=== PATIENT | female | born 1965 | race Caucasian/White ===

== ENCOUNTER → 2018-07-30 | Outpatient (CLI) | payer BC ==
--- NOTE | 2018-07-31 10:01 | US ---
EXAMINATION TYPE: US thyroid st tissue head/neck DATE OF EXAM: 07/30/2018 COMPARISON: NONE CLINICAL HISTORY: E04.1 goiter. GLAND SIZE: Right Lobe: cm Overall Parenchyma: Left Lobe: cm Overall Parenchyma: Isthmus Thickness: cm NODULES RIGHT: # of nodules measured on right: 1. X x cm nodule at the pole with margins; . This nodule is and shows . Prior size: x x cm 2. X x cm nodule at the pole with margins; . This nodule is and shows . Prior size: x x cm 3. X x cm nodule at the pole with margins; . This nodule is and shows . Prior size: x x cm 4. X x cm nodule at the pole with margins; . This nodule is and shows . Prior size: x x cm LEFT: # of nodules measured on left: 1. X x cm nodule at the pole with margins; . This nodule is and shows . Prior size: x x cm 2. X x cm nodule at the pole with margins; . This nodule is and shows . Prior size: x x cm 3. X x cm nodule at the pole with margins; . This nodule is and shows . Prior size: x x cm 4. X x cm nodule at the pole with margins; . This nodule is and shows . Prior size: x x cm ISTHMUS: # of nodules measured in the isthmus: 1. X x cm nodule at the pole with margins; . This nodule is and shows . Prior size: x x cm Bilateral neck scanned, no evidence of lymphadenopathy. IMPRESSION: EXAMINATION TYPE: US thyroid st tissue head/neck DATE OF EXAM: 07/30/2018 COMPARISON: NONE CLINICAL HISTORY: E04.1 goiter. GLAND SIZE: Right Lobe: 5.3 x 2.1 x 2.1 cm Overall Parenchyma: homogenous Left Lobe: 4.9 x 1.8 x 2.1 cm Overall Parenchyma: homogeneous Isthmus Thickness: 0.2 cm NODULES RIGHT: # of nodules measured on right: 1 1. 1.5 x 0.9 x 1.2 cm isoechoic solid nodule at the lower pole with well-defined margins. This nod ule is wider than tall and shows intranodular vascularity. Prior size: 1.1 x 0.6 x 1.1 cm LEFT: # of nodules measured on left: 0 ISTHMUS: # of nodules measured in the isthmus: 0 Bilateral neck scanned, no evidence of lymphadenopathy. IMPRESSION: 1. Enlarging right lobe thyroid nodule.
== END | disposition home or self-care (01) ==
LOC: RADUSWWP 16:13
PROVIDERS: ATTEND Family Medicine
DX: E04.1 Nontoxic single thyroid nodule (principal)
CPT/HCPCS: 76536

== ENCOUNTER → 2018-08-20 | Outpatient (CLI) | payer BC ==
[2018-08-20 16:39] LABS: Parathyroid Hormone Intact 55.3 pg/mL (14.0-72.0)
[2018-08-20 16:53] LABS: Vitamin D 25 Hydroxy 19.5 ng/mL (30.0-100.0)
[2018-08-20 16:59] LABS: African American GFR (CKD) 120.6 (60.0-200.0); Albumin 4.3 g/dL (3.80-4.90); Albumin/Globulin Ratio 1.72 (1.60-3.17); Anion Gap 7.9 mmol/L (4.00-12.00); BUN/Creat Ratio 21.67 Ratio (12.00-20.00); Calcium 9.6 mg/dL (8.7-10.3); Carbon Dioxide 26.1 mmol/L (21.6-31.8); Globulin 2.5 g/dL (1.6-3.3); Potassium 4.3 mmol/L (3.5-5.5); Total Bilirubin 0.4 mg/dL (0.3-1.2); Total Protein 6.8 g/dL (6.2-8.2)
== END | disposition home or self-care (01) ==
LOC: LABWHC1 09:59
PROVIDERS: ATTEND Internal Medicine Endocrinology, Diabetes & Metabolism
DX: E83.52 Hypercalcemia (principal)
CPT/HCPCS: 36415; 80053; 82306; 83970

== ENCOUNTER → 2018-09-11 | Outpatient (CLI) | payer BC | END | disposition home or self-care (01) | LOC: RADUSWWP 08:12 | PROVIDERS: ATTEND Family Medicine | DX: R09.89 Other specified symptoms and signs involving the circulatory and respiratory systems (principal) | CPT/HCPCS: 93922 ==

== ENCOUNTER → 2018-10-02 | Outpatient (CLI) | payer BC ==
--- NOTE | 2018-10-06 17:05 | MM ---
Reason for exam: screening (asymptomatic). Last mammogram was performed 4 years and 1 month ago. History: Patient is postmenopausal. Took hormonal contraceptives for 3 years beginning at age 15. Taking unspecified hormones for 6 years beginning at age 36. MG Screening Mammo w CAD Bilateral CC and MLO view(s) were taken. Prior study comparison: August 30, 2014, bilateral MG screening mammo w CAD. June 11, 2013, [facility] DIGITAL LEFT BREAST MAMMOGRAM w/CAD. The breast tissue is heterogeneously dense. This may lower the sensitivity of mammography. No significant new finding when compared with prior studies. ASSESSMENT: Negative, BI-RAD 1 RECOMMENDATION: Routine screening mammogram of both breasts in 1 year.
== END | disposition home or self-care (01) ==
LOC: RADMAMWWP 15:06
PROVIDERS: ATTEND Family Medicine
DX: Z12.31 Encounter for screening mammogram for malignant neoplasm of breast (principal)
CPT/HCPCS: 77067

== ENCOUNTER → 2018-10-21 | Outpatient (CLI) | payer BC ==
[2018-10-21 15:19] LABS: Vitamin D 25 Hydroxy 41.8 ng/mL (30.0-100.0)
[2018-10-21 15:49] LABS: African American GFR (CKD) 96.9 (60.0-200.0); Albumin 4.1 g/dL (3.80-4.90); Albumin/Globulin Ratio 2.28 (1.60-3.17); Anion Gap 10.3 mmol/L (4.00-12.00); BUN/Creat Ratio 18.75 Ratio (12.00-20.00); Calcium 9.3 mg/dL (8.7-10.3); Carbon Dioxide 23.7 mmol/L (21.6-31.8); Globulin 1.8 g/dL (1.6-3.3); Non-African American GFR(CKD) 83.6 (60.0-200.0); Potassium 4.2 mmol/L (3.5-5.5); Total Bilirubin 0.4 mg/dL (0.2-1.2); Total Protein 5.9 g/dL (6.2-8.2)
== END | disposition home or self-care (01) ==
LOC: LABWHC1 10:45
PROVIDERS: ATTEND Internal Medicine Endocrinology, Diabetes & Metabolism
DX: E83.52 Hypercalcemia (principal)
CPT/HCPCS: 36415; 80053; 82306; 83970

== ENCOUNTER → 2019-05-18 | Outpatient (CLI) | payer BC ==
--- NOTE | 2019-05-18 16:12 | US ---
EXAMINATION TYPE: US thyroid st tissue head/neck DATE OF EXAM: 05/18/2019 COMPARISON: 07/30/2018 CLINICAL HISTORY: E04.1 Nontoxic single thyroid nodule. f/u exam GLAND SIZE: Right Lobe: 6.0 x 1.7 x 2.0 cm Overall Parenchyma: homogenous and slightly hypervascular Left Lobe: 5.4 x 1.6 x 1.8 cm Overall Parenchyma: homogeneous and slightly hypervascular Isthmus Thickness: 0.2 cm NODULES RIGHT: # of nodules measured on right: 0. The previously seen 1.5 cm right thyroid nodule appears t owards the isthmus on today's examination and is detailed below. LEFT: # of nodules measured on left: 0 ISTHMUS: # of nodules measured in the isthmus: 1 1. 1.2 X 1.3 x 0.8 cm hypoechoic solid nodule at the right side with well-defined margins. This n odule is wider than tall and shows no intranodular vascularity. Prior size: 1.5 x 0.9 x 1.2 cm Bilateral neck scanned, no evidence of lymphadenopathy. IMPRESSION: No interval growth of a solitary thyroid nodule. Overall enlarged thyroid gland with slig ht hypervascularity. Correlate for thyroiditis.
[2019-05-18 16:54] LABS: ALT 15 U/L (4-34); AST 27 U/L (14-36); African American GFR (CKD) >90 (>60 ml/min/1.73 sqM); Albumin 4.4 g/dL (3.5-5.0); Alkaline Phosphatase 74 U/L (38-126); Anion Gap 6 mmol/L; Blood Urea Nitrogen 11 mg/dL (7-17); Calcium 9.7 mg/dL (8.4-10.2); Carbon Dioxide 27 mmol/L (22-30); Chloride 104 mmol/L (98-107); Glucose 88 mg/dL (74-99); Non-African American GFR(CKD) >90 (>60 ml/min/1.73 sqM); Potassium 4.1 mmol/L (3.5-5.1); Sodium 137 mmol/L (137-145); Total Bilirubin 0.4 mg/dL (0.2-1.3); Total Protein 7.2 g/dL (6.3-8.2)
[2019-05-18 17:10] LABS: T4, Free (Free Thyroxine) 1.35 ng/dL (0.78-2.19)
== END | disposition home or self-care (01) ==
LOC: RADUSWWP 15:38
PROVIDERS: ATTEND Internal Medicine Endocrinology, Diabetes & Metabolism
DX: E04.9 Nontoxic goiter, unspecified (principal); E04.1 Nontoxic single thyroid nodule; E55.9 Vitamin D deficiency, unspecified
CPT/HCPCS: 36415; 76536; 80053; 82306; 84439; 84443

== ENCOUNTER → 2019-09-03 | Outpatient (CLI) | payer BC ==
--- NOTE | 2019-09-03 10:55 | MR ---
EXAMINATION TYPE: MR shoulder RT wo con DATE OF EXAM: 09/03/2019 COMPARISON: X-ray 08/09/2019 HISTORY: Rt shoulder pain x 7 mos, no trauma TECHNIQUE: Multiplanar, multisequence imaging of the right shoulder is performed without contrast. FINDINGS: There is a small amount of fluid in the subacromial bursa. Hypertrophic change of the AC sandro int is noted. There likely is mild mass effect upon the supraspinatus tendon and muscle and resulting impingement. There is very minimal bursal scuffing along the insertion and distal margin of the infraspinatus tend on. Increased signal at the insertion of the infraspinatus tendon is most compatible with tendinosis with no diagnostic evidence of through thickness tear. There is thickening of the inferior glenohumeral ligament associated with ligamentous injury or synov itis. Bicipital tendon is well situated in the bicipital groove. Increased signal intrasubstance biceps ten don within the rotator interval. Bony labrum are grossly intact by nonarthrogram technique. Suprascapular notch normal in appearance. IMPRESSION : 1. Marked thickening of the inferior glenohumeral ligament which can be associated with ligamentous t ear or injury, synovitis or capsulitis. Correlate clinically. 2. Bursal scuffing along the insertion and distal margin of the infraspinatus tendon. No through thic kness tear. 3. Bicipital tendinosis. 4. Tendinosis insertion supraspinatus tendon with no through thickness tear or retraction.
== END | disposition home or self-care (01) ==
LOC: RADMRIMAIN 08:54
PROVIDERS: ATTEND Orthopaedic Surgery
DX: M65.9 Synovitis and tenosynovitis, unspecified (principal)

== ENCOUNTER → 2019-09-21 | Outpatient (CLI) | payer BC ==
[2019-09-21 08:02] LABS: Basophils # (A) 0.1 k/uL (0-0.2); Basophils % (A) 1 %; Eosinophils # (A) 0.1 k/uL (0-0.7); Eosinophils % (A) 2 %; HCT 51.1 % (34.0-46.0); HGB 16.5 gm/dL (11.4-16.0); Lymphocytes # (A) 1.9 k/uL (1.0-4.8); Lymphocytes % (A) 27 %; MCH 30.7 pg (25.0-35.0); MCHC 32.2 g/dL (31.0-37.0); MCV 95.3 fL (80.0-100.0); Monocytes # (A) 0.3 k/uL (0-1.0); Monocytes % (A) 5 %; Neutrophils # (A) 4.4 k/uL (1.3-7.7); Neutrophils % (A) 64 %; Platelet Count 248 k/uL (150-450); RBC 5.36 m/uL (3.80-5.40); RDW 13.2 % (11.5-15.5); WBC 6.9 k/uL (3.8-10.6)
[2019-09-21 08:09] LABS: Potassium 4.2 mmol/L (3.5-5.1)
--- NOTE | 2019-09-21 08:53 | XR ---
EXAMINATION TYPE: XR chest 2V DATE OF EXAM: 09/21/2019 COMPARISON: None INDICATION: Adhesive capsulitis, presurgical evaluation TECHNIQUE: Frontal and lateral views of the chest are obtained. FINDINGS: The heart size is normal. The pulmonary vasculature is normal. The lungs are clear. IMPRESSION: 1. No acute pulmonary process.
== END | disposition home or self-care (01) ==
LOC: RADXRMAIN 06:55
PROVIDERS: ATTEND Orthopaedic Surgery
DX: Z01.818 Encounter for other preprocedural examination (principal); Z01.812 Encounter for preprocedural laboratory examination; Z01.810 Encounter for preprocedural cardiovascular examination; M75.01 Adhesive capsulitis of right shoulder
CPT/HCPCS: 36415; 71046; 80051; 85025; 93005

== ENCOUNTER 2019-09-24 05:31 | Day surgery (SDC) | payer BC ==
[2019-09-21 10:49] VITALS: BMI 22.1
--- NOTE | 2019-09-23 10:27 | HP ---
HISTORY AND PHYSICAL CHIEF COMPLAINT: Right shoulder pain and stiffness. 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 She is having pain that radiates into her upper arm with overhead use and at night. It seems to be worsening recently. She has previously tried medications along with a home stretching regimen without much relief. PAST MEDICAL HISTORY: Significant for hyperthyroidism. CURRENT MEDICATIONS: None. PAST SURGICAL HISTORY: Significant for tubal ligation and cholecystectomy. FAMILY HISTORY: Family history is negative. SOCIAL HISTORY: Significant for 1/3 pack per day tobacco use. REVIEW OF SYSTEMS: Sixteen point review of systems otherwise reviewed and is noncontributory. PHYSICAL EXAMINATION: On examination, the patient is approximately 5 foot, 6 inches, 136 pounds, of mesomorphic habitus. HEENT exam is nonfocal. Neck is supple. On examination of her right shoulder, she is tender about the anterior subacromial space. She has moderate subacromial crepitus. Active range of motion forward elevation 90 degrees, external rotation of the arm to side 30 degrees, internal rotation to the buttock. Passively I am able to forward elevate her to 100 degrees. Impingement test, NEER test and Speed tests are positive. Her distal neurovascular exam otherwise appears intact in the right upper extremity. IMAGING: MRI report right shoulder from 09/03/2019 shows rotator cuff tendinosis along with synovitis. IMPRESSION: 1. Right shoulder adhesive capsulitis. 2. Right shoulder impingement with rotator cuff tendinosis/synovitis. RECOMMENDATIONS: I talked to the patient at length regarding her condition, along with treatment options. After thorough discussion, she opts to proceed with surgery. We will plan to proceed with right shoulder arthroscopic evaluation with probable subacromial decompression and rotator cuff debridement along with manipulation. We will likely perform that as an outpatient procedure. Risks and benefits were discussed at length in layman's terms. MMODL / IJN: [id number] /
[2019-09-24] MEDS ORDERED: DEXAMETHASONE SOD PHOSPHATE 10 MG/ML 1 ML VIAL IV ONE (05:41)
[2019-09-24] MEDS ORDERED: ONDANSETRON 4 MG/2 ML VIAL IVP ONE (05:41)
[2019-09-24] MEDS ORDERED: KETOROLAC 30 MG/ML 1 ML VIAL IVP SCH (05:41)
[2019-09-24] MEDS ORDERED: METOCLOPRAMIDE 5 MG/ML 2 ML VIAL IVP PRN (05:41)
[2019-09-24] MEDS ORDERED: HYDROmorphone 0.5 MG/0.5 ML SYRINGE IVP PRN (05:41)
[2019-09-24] MEDS ORDERED: LIDOCAINE 1% (10MG/ML) FOR IV START INTRADERMA PRN (05:41)
[2019-09-24 05:55] VITALS: RESP 16
[2019-09-24] MEDS: LACTATED RINGERS 1,000 ML IV SCH ×2 (06:00→06:56)
[2019-09-24] MEDS ORDERED: ONDANSETRON 4 MG/2 ML VIAL ONE (06:05)
[2019-09-24] MEDS ORDERED: fentaNYL (PF) 50 MCG/ML 2 ML AMP IVP ONE (06:43)
[2019-09-24] MEDS ORDERED: MIDAZOLAM 2 MG/2 ML VIAL IVP ONE ×2 (06:43)
[2019-09-24] MEDS ORDERED: ROPIVACAINE 5 MG/ML 30 ML VIAL ONE (06:56)
[2019-09-24] MEDS ORDERED: PROPOFOL 10 MG/ML 20 ML VIAL IV ONE (06:56)
[2019-09-24] MEDS ORDERED: fentaNYL (PF) 50 MCG/ML 2 ML AMP ONE (06:56)
[2019-09-24] MEDS ORDERED: LIDOCAINE 1% INJ 10MG/ML (20 ML MDV) ONE (06:56)
[2019-09-24] MEDS ORDERED: ePHEDrine SULFATE/0.9% NACL/PF 50 MG/5 ML SYRINGE IV ONE (06:56)
[2019-09-24] MEDS ORDERED: SUCCINYLCHOLINE CHLORIDE 100 MG/5 ML SYR IV ONE (06:56)
--- NOTE | 2019-09-24 07:19 | P.ANPRN ---
Procedure Note - Anesthesia - Nerve Block Performed Right Interscalene Single Time Out Performed: Yes Date of Procedure: 09/24/19 Procedure Start Time: 06:40 Procedure Stop Time: 06:48 Location of Patient: PreOp Indication: Requested by Surgeon Specifically requested for management of pain by DrDaxa: Arik Parker Sedation Type: Sedate with meaningful contact maintained Preparation: Sterile Prep Position: Supine Catheter: None Needle Types: Pajunk Needle Gauge: 21 Ultrasound used to visualize needle placement: Yes Ultrasound used to observe medication spread: Yes Injectate: 0.5% Ropivacaine (see comment for volume) (20 ml) Blood Aspirated: No Pain Paresthesia on Injection Noted: No Resistance on Injection: Normal Image Stored and Saved: Yes Events: Uneventful and Well Tolerated
[2019-09-24] MEDS ORDERED: EPINEPHrine (PF) 1 ML in SODIUM CHLORIDE 0.9% IRRIGATIO 3,000 ML IRRIGATION ONE ×7 (07:38→07:40)
--- NOTE | 2019-09-24 08:07 | P.OP ---
Date of Procedure: 09/24/19 Preoperative Diagnosis: Right shoulder impingement/adhesive capsulitis Postoperative Diagnosis: Same in addition to partial thickness bursal surface tear rotator cuff/synovitis Procedure(s) Performed: Right shoulder arthroscopic subacromial decompression/partial synovectomy/rotator cuff debridement/manipulation under anesthesia Anesthesia: miguel FERNÁNDEZ Surgeon: Arik Parker Med Spa Manager #1: Gordon Bustillo Estimated Blood Loss (ml): 10 Pathology: none sent Condition: stable Disposition: PACU Indications for Procedure: Patient is a 54-year-old female who presents with progressive right shoulder pain and stiffness for the past 6 months despite conservative measures. A discussion the risks and benefits of operative intervention versus continued conservative measures was made with patient. She opted to proceed with surgery. Operative risks to include infection, neurovascular injury, development of blood clots, possible recurrence of stiffness and need process Procedures was discussed. Informed consent was obtained. Operative Findings: As below Description of Procedure: The patient was brought to the operating room, and after induction of general anesthesia was placed in a beachchair position. A preoperative interscalene block was placed for postoperative analgesia. I examined the right shoulder. There was significant block to passive motion. Gentle manipulation was performed first with the arm at the side obtaining full external rotation. Moderate adhesions were encountered. I then was able to obtain full forward elevation. Again there were moderate adhesions encountered. The right upper extremity was prepped and draped in normal fashion. The bony outlines the acromion, distal clavicle, and coracoid process were outlined with a skin marker. The glenohumeral joint was inflated with 50 mL of saline utilizing a spinal needle from posterior approach. A posterior portal was made through a 5 mm skin incision 1 cm medial and inferior to the posterior lateral border time. A blunt trocar was used to easily into the joint. Diagnostic arthroscopy was performed. An anterior portal was made just lateral to the coracoid process entering the joint above the subscapularis tendon. The subscapularis tendon appeared to be intact. There was significant synovitis of the rotator interval. This was debrided with a motorized shaver. Anterior labrum was intact. The inferior recess was inspected. The posterior labrum was intact. The biceps and anchor appeared to be intact. The rotator cuff was intact on the articular surface. Remaining synovitis was debrided with a motorized shaver. A lateral portal was made 2 centimeters inferior to the anterior lateral border of the acromion. The rotator cuff was inspected. A partial thickness tear involving the anterior aspect of the supraspinatus. This debrided with motorized shaver. Less than 10% of the tendon thickness was involved. Remaining rotator cuff appeared intact. There was significant subacromial bursitis that was debrided with a motorized shaver. The soft tissue on the undersurface of the acromion was debrided with a motorized shaver and electrocautery clearly defining the anterior medial and lateral borders as well as the distal clavicle. An anterior inferior acromioplasty was performed with a motorized tacos starting anterolateral, then extending this posteriorly, then extending this medially. I converted to a flat acromion and this was verified in the posterior and lateral viewing portals. The arthroscope was then removed. The portals were closed with simple 3-0 nylon sutures. A sterile dressing was applied in addition to a sling. The patient was then awoken from general anesthesia and transferred to recovery room in good condition. Blood loss was estimated at 10 mL. No complications were incurred. Sponge and needle counts were correct in the case. Isma FRANCO assisted and the major components of the case to include arm positioning along with decompression.
[2019-09-24 08:09] VITALS: TEMP 96.9
[2019-09-24 09:10] VITALS: BP 121/78; PULSE 82
== END 2019-09-24 09:33 | disposition home or self-care (01) ==
LOC: OR 05:31
PROVIDERS: ATTEND Orthopaedic Surgery
DX: M75.111 Incomplete rotator cuff tear or rupture of right shoulder, not specified as traumatic (principal); M75.01 Adhesive capsulitis of right shoulder; M75.51 Bursitis of right shoulder; M65.811 Other synovitis and tenosynovitis, right shoulder; E05.90 Thyrotoxicosis, unspecified without thyrotoxic crisis or storm; Z98.51 Tubal ligation status; Z90.49 Acquired absence of other specified parts of digestive tract; F17.210 Nicotine dependence, cigarettes, uncomplicated; Z97.2 Presence of dental prosthetic device (complete) (partial)
CPT/HCPCS: 64415; 76942; 29823; J2250; J1100; J2405; J0690; J0171; J2001; J3010; J2795; J0330; J2704

== ENCOUNTER → 2019-12-07 | Outpatient (CLI) | payer BC ==
[2019-12-07 17:25] LABS: T4, Free (Free Thyroxine) 1.3 ng/dL (0.80-1.80)
== END | disposition home or self-care (01) ==
LOC: LABWHC1 08:26
PROVIDERS: ATTEND Internal Medicine Endocrinology, Diabetes & Metabolism
DX: E04.1 Nontoxic single thyroid nodule (principal); E55.9 Vitamin D deficiency, unspecified
CPT/HCPCS: 36415; 82306; 84439; 84443

== ENCOUNTER 2020-07-30 02:49 | Emergency (ER) | payer BC ==
[2020-07-30 02:53] VITALS: TEMP 97.6
[2020-07-30] MEDS ORDERED: SODIUM CHLORIDE 0.9% 1,000 ML IV STA ×2 (03:11)
--- NOTE | 2020-07-30 03:14 | ED ---
Chest Pain HPI - General Chief Complaint: Chest Pain Stated Complaint: Chest pain Time Seen by Provider: 07/30/20 02:59 Source: patient Mode of arrival: wheelchair Limitations: no limitations - Related Data Home Medications Medication Instructions Recorded Confirmed Multivitamins, Thera [Multivitamin] 1 tab PO DAILY 08/22/15 09/24/19 Elderberry Fruit and Flower [Black 1 each PO DAILY 09/21/19 09/24/19 Elderberry 575 mg Cap] Previous Rx's Medication Instructions Recorded Hydrocodone/Acetaminophen [[place] 1 each PO Q6HR PRN #28 tab 09/24/19 5-325] Allergies Allergy/AdvReac Type Severity Reaction Status Date / Time No Known Allergies Allergy Verified 07/30/20 02:53 Review of Systems ROS Statement: Those systems with pertinent positive or pertinent negative responses have been documented in the HPI. ROS Other: All systems not noted in ROS Statement are negative. Past Medical History Past Medical History: Thyroid Disorder History of Any Multi-Drug Resistant Organisms: None Reported Past Surgical History: Cholecystectomy, Orthopedic Surgery, Tubal Ligation Additional Past Surgical History / Comment(s): cyst removed left wrist Past Anesthesia/Blood Transfusion Reactions: No Reported Reaction Past Psychological History: No Psychological Hx Reported Smoking Status: Current every day smoker Past Alcohol Use History: Occasional Past Drug Use History: Marijuana - Past Family History Mother Family Medical History: Deep Vein Thrombosis (DVT) General Exam Limitations: no limitations Course Vital Signs 07/30/20 07/30/20 07/30/20 02:51 03:10 04:28 Temperature 97.6 F Pulse Rate 77 68 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
[2020-07-30 03:31] LABS: Basophils % (A) 0 %; Eosinophils # (A) 0.2 k/uL (0-0.7); Eosinophils % (A) 1 %; HGB 16.3 gm/dL (11.4-16.0); Lymphocytes # (A) 1.6 k/uL (1.0-4.8); Lymphocytes % (A) 12 %; MCH 32.5 pg (25.0-35.0); MCHC 34.6 g/dL (31.0-37.0); MCV 93.8 fL (80.0-100.0); Mean Platelet Volume 7.9; Monocytes # (A) 0.5 k/uL (0-1.0); Monocytes % (A) 4 %; Neutrophils # (A) 10.7 k/uL (1.3-7.7); Neutrophils % (A) 82 %; Platelet Count 240 k/uL (150-450); RBC 5.01 m/uL (3.80-5.40); RDW 12.6 % (11.5-15.5); WBC 13.1 k/uL (3.8-10.6)
[2020-07-30] MEDS ORDERED: MORPHINE SULFATE 4 MG/ML SYRINGE IVP STA (03:35)
[2020-07-30 03:44] LABS: ALT 12 U/L (4-34); AST 29 U/L (14-36); African American GFR (CKD) >90 (>60 ml/min/1.73 sqM); Albumin 4.4 g/dL (3.5-5.0); Alkaline Phosphatase 77 U/L (38-126); Anion Gap 8 mmol/L; Blood Urea Nitrogen 8 mg/dL (7-17); Calcium 10.7 mg/dL (8.4-10.2); Carbon Dioxide 31 mmol/L (22-30); Chloride 100 mmol/L (98-107); Glucose 114 mg/dL (74-99); Lipase 136 U/L (23-300); Magnesium 1.6 mg/dL (1.6-2.3); Non-African American GFR(CKD) >90 (>60 ml/min/1.73 sqM); Potassium 3.9 mmol/L (3.5-5.1); Sodium 139 mmol/L (137-145); Total Bilirubin 0.6 mg/dL (0.2-1.3); Total Protein 6.9 g/dL (6.3-8.2)
[2020-07-30 03:51] LABS: D-Dimer 0.32 mg/L FEU (<0.60); Prothrombin Time 10.4 sec (9.0-12.0)
[2020-07-30 03:54] LABS: Partial Thromboplastin Time 20.3 sec (22.0-30.0)
[2020-07-30] MEDS ORDERED: HYDROmorphone 1 MG/ML 1 ML SYRINGE IVP STA (04:08)
[2020-07-30 04:29] VITALS: BP 141/84; PULSE 68; RESP 18
--- NOTE | 2020-07-30 04:33 | CT ---
EXAM: CT Angiography Chest With Intravenous Contrast CLINICAL HISTORY: ITS.REASON CT Reason: cp TECHNIQUE: Axial computed tomographic angiography images of the chest with intravenous contrast. CTDI is 8.97 mGy and DLP is 209.2 mGy-cm. This CT exam was performed using one or more of the following dose reduction techniques: automated exposure control, adjustment of the mA and/or kV according to patient size, and/or use of iterative reconstruction technique. MIP reconstructed images were created and reviewed. COMPARISON: No relevant prior studies available. FINDINGS: Limitations: There is respiratory artifact which degrades image quality on multiple image slices. Pulmonary arteries: No evidence for pulmonary embolism. Aorta: No acute findings. No thoracic aortic aneurysm. Lungs: Subsegmental dependent atelectatic changes in the posterior lung bases. Subtle centrilobular bullous disease in the upper lobes, right greater than left. Minimal areas of ground-glass attenuation. No focal consolidation however. 3 mm noncalcified pulmonary nodule in the inferior left lingular segments adjacent to the major fissure. Pleural space: Unremarkable. No significant effusion. No pneumothorax. Heart: Unremarkable. No cardiomegaly. No significant pericardial effusion. Bones/joints: No acute fracture. No dislocation. Soft tissues: Unremarkable. Lymph nodes: Unremarkable. No enlarged lymph nodes. IMPRESSION: 1. No evidence for pulmonary embolism. 2. Subsegmental dependent atelectatic changes in the posterior lung bases. Subtle centrilobular bullous disease in the upper lobes, right greater than left. Minimal areas of ground-glass attenuation are presumed scattered areas of air-trapping and subsegmental atelectasis. No focal consolidation however. No pleural effusion or pneumothorax. 3. 3 mm noncalcified pulmonary nodule in the inferior left lingular segments adjacent to the major fissure. Fleischner Society Guidelines in low-risk patients (minimal or absent history of smoking or other known risk factors), no follow-up is necessary. For high-risk patients (history of smoking or other known risk factors), an optional chest CT at 12 months could be performed.
[2020-07-30] MEDS ORDERED: KETOROLAC 15 MG/ML 1 ML VIAL IVP STA (04:35)
== END 2020-07-30 05:23 | disposition home or self-care (01) ==
LOC: EC 02:49
DX: R07.89 Other chest pain (principal); M54.9 Dorsalgia, unspecified; F17.200 Nicotine dependence, unspecified, uncomplicated
CPT/HCPCS: 36415; 93005; 85379; 83880; 80053; 83690; 83735; 84484; 85025; 85610; 85730; 71275; 99285; 96374; 96375 ×2; 96361; J2270; J1170; J1885

== ENCOUNTER → 2020-12-05 | Outpatient (CLI) | payer BC | END | disposition home or self-care (01) | LOC: LABWHC1 12:58 | PROVIDERS: ATTEND Internal Medicine Endocrinology, Diabetes & Metabolism | DX: E04.1 Nontoxic single thyroid nodule (principal); E55.9 Vitamin D deficiency, unspecified | CPT/HCPCS: 36415; 80053; 82306; 84439; 84443 ==

== ENCOUNTER → 2021-01-03 | Outpatient (CLI) | payer BC ==
--- NOTE | 2021-01-03 16:21 | US ---
EXAMINATION TYPE: US thyroid st tissue head/neck DATE OF EXAM: 01/03/2021 COMPARISON: NONE CLINICAL HISTORY: E04.1 non toxic thyroid nodule. follow up thyroid nodule GLAND SIZE: Right Lobe: 6.0 x 2.3 x 2.0 cm Overall Parenchyma: homogenous Left Lobe: 5.9 x 1.8 x 1.8 cm Overall Parenchyma: homogeneous Isthmus Thickness: 0.3 cm NODULES RIGHT: # of nodules measured on right: 0 LEFT: # of nodules measured on left: 0 ISTHMUS: # of nodules measured in the isthmus: 1 1. 1.2 X 0.7 x 1.0 cm solid, isoechoic nodule, which is wider than tall, with smooth margins, witho ut echogenic foci. Prior size: 1.2 x 1.3 x 0.8 cm Bilateral neck scanned, no evidence of lymphadenopathy. IMPRESSION: Thyroidomegaly with stable and nonspecific nodule in the thyroid isthmus.
== END | disposition home or self-care (01) ==
LOC: RADUSWWP 15:33
PROVIDERS: ATTEND Internal Medicine Endocrinology, Diabetes & Metabolism
DX: E04.1 Nontoxic single thyroid nodule (principal)
CPT/HCPCS: 76536

== ENCOUNTER → 2021-12-21 | Outpatient (CLI) | payer BC | END | disposition home or self-care (01) | LOC: LABWHC1 12:31 | PROVIDERS: ATTEND Internal Medicine Endocrinology, Diabetes & Metabolism | DX: E03.8 Other specified hypothyroidism (principal); E55.9 Vitamin D deficiency, unspecified | CPT/HCPCS: 36415; 82306; 84443 ==

== ENCOUNTER → 2022-05-21 | Outpatient (CLI) | payer BC ==
--- NOTE | 2022-05-22 08:47 | MM ---
Reason for Exam: Screening (asymptomatic). Last mammogram was performed 3 year(s) and 8 month(s) ago. Patient History: Menarche at age 10. First Full-Term at age 18. Postmenopausal. Hormonal Contraceptives for 3 years from age 15 until age 18. Unspecified Hormone, starting at age 36 for 6 years. Risk Values: Shari 5 year model risk: 1.0%. NCI Lifetime model risk: 6.3%. Prior Study Comparison: 06/11/2013 Left Diagnostic Mammogram, [facility]. 08/30/2014 Bilateral Screening Mammogram, [facility]. 10/02/2018 Bilateral Screening Mammogram, [facility]. Tissue Density: The breast tissue is heterogeneously dense. This may lower the sensitivity of mammography. Analyzed By CAD. Overall Assessment: Negative, BI-RAD 1 Management: Screening Mammogram of both breasts in 1 year. Electronically signed and approved by: Jun Iraheta M.D.
== END | disposition home or self-care (01) ==
LOC: RADMAMWWP 08:52
PROVIDERS: ATTEND Family Medicine
DX: Z12.31 Encounter for screening mammogram for malignant neoplasm of breast (principal); Z78.0 Asymptomatic menopausal state
CPT/HCPCS: 77067

== ENCOUNTER → 2022-06-25 | Outpatient (CLI) | payer BC ==
[2022-06-25 23:15] LABS: T4, Free (Free Thyroxine) 1.57 ng/dL (0.800-1.800)
== END | disposition home or self-care (01) ==
LOC: LABWHC1 13:34
PROVIDERS: ATTEND Internal Medicine Endocrinology, Diabetes & Metabolism
DX: E03.8 Other specified hypothyroidism (principal); E04.1 Nontoxic single thyroid nodule
CPT/HCPCS: 36415; 84439; 84443

== ENCOUNTER → 2023-01-06 | Outpatient (CLI) | payer BC ==
[2023-01-06 22:35] LABS: ALT 19 U/L (8-44); AST 24 U/L (13-35); Albumin 4.1 d/dL (3.8-4.9); Albumin/Globulin Ratio 1.78 Ratio (1.60-3.17); Alkaline Phosphatase 79 U/L (41-126); Blood Urea Nitrogen 11.1 mg/dL (9.0-27.0); Calcium 9.8 mg/dL (8.7-10.3); Carbon Dioxide 28.3 mmol/L (21.6-31.8); Chloride 102 mmol/L (96-109); Globulin 2.3 d/dL (1.6-3.3); Glucose 102 mg/dL (70-110); Potassium 4.6 mmol/L (3.5-5.5); Sodium 140 mmol/L (135-145); T4, Free (Free Thyroxine) 1.26 ng/dL (0.80-1.80); Total Bilirubin <0.2 mg/dL (0.3-1.2); Total Protein 6.4 d/dL (6.2-8.2)
== END | disposition home or self-care (01) ==
LOC: LABWHC1 15:05
PROVIDERS: ATTEND Internal Medicine Endocrinology, Diabetes & Metabolism
DX: E04.1 Nontoxic single thyroid nodule (principal); E55.9 Vitamin D deficiency, unspecified; E21.3 Hyperparathyroidism, unspecified
CPT/HCPCS: 36415; 80053; 82306; 83970; 84439; 84443

== ENCOUNTER → 2023-08-18 | Outpatient (CLI) | payer OTHER ==
[2023-08-19 03:41] LABS: ALT 16 U/L (8-44); AST 24 U/L (13-35); Albumin 4.5 g/dL (3.8-4.9); Albumin/Globulin Ratio 2.05 Ratio (1.60-3.17); Alkaline Phosphatase 61 U/L (41-126); BUN/Creat Ratio 10.83 Ratio (12.00-20.00); Blood Urea Nitrogen 6.5 mg/dL (9.0-27.0); Calcium 9.9 mg/dL (8.7-10.3); Carbon Dioxide 25.3 mmol/L (21.6-31.8); Chloride 103 mmol/L (96-109); Globulin 2.2 g/dL (1.6-3.3); Glucose 88 mg/dL (70-110); Potassium 3.8 mmol/L (3.5-5.5); Sodium 142 mmol/L (135-145); T4, Free (Free Thyroxine) 1.34 ng/dL (0.80-1.80); Total Bilirubin 0.3 mg/dL (0.3-1.2); Total Protein 6.7 g/dL (6.2-8.2)
== END | disposition home or self-care (01) ==
LOC: LABWHC1 15:55
PROVIDERS: ATTEND Internal Medicine Endocrinology, Diabetes & Metabolism
DX: E21.1 Secondary hyperparathyroidism, not elsewhere classified (principal); E04.2 Nontoxic multinodular goiter; E55.9 Vitamin D deficiency, unspecified
CPT/HCPCS: 36415; 80053; 82306; 83970; 84439; 84443

== ENCOUNTER → 2023-08-18 | Outpatient (CLI) | payer OTHER ==
--- NOTE | 2023-08-18 17:09 | US ---
EXAMINATION TYPE: US thyroid st tissue head/neck DATE OF EXAM: 08/18/2023 COMPARISON: US 05/21/2022 CLINICAL INDICATION: Female, 57 years old with history of R22.9 LOCALIZED SWELLING, MASS AND LUMP, UN SPECIFI; Hx FNA. GLAND SIZE: Right Lobe: 5.3 x 2.0 x 2.2 cm Overall Parenchyma: homogeneous Left Lobe: 5.2 x 1.6 x 1.5 cm Overall Parenchyma: homogeneous Isthmus Thickness: 0.21 cm NODULES RIGHT: # of nodules measured on right: 1 less than 5 mm nodule seen. Nodule that was seen on prior exam appears to be within the right isthmus/right thyroid lobe-measurem ent in isthmus section below. LEFT: # of nodules measured on left: 1 less than 5 mm nodule seen. ISTHMUS: # of nodules measured in the isthmus: 1 1. 1.4 X 1.3 x 0.9 cm solid or almost completely solid, isoechoic nodule, which is wider than tall, with smooth margins, without echogenic foci. TR 3. Prior size: 1.4 x 1.1 x 1.1 cm Nodule appears to be within the right isthmus/right thyroid lobe. Bilateral neck scanned, no evidence of lymphadenopathy. IMPRESSION: Thyromegaly with stable TR 3 isthmus nodule.
== END | disposition home or self-care (01) ==
LOC: RADUSWWP 15:51
PROVIDERS: ATTEND Internal Medicine Endocrinology, Diabetes & Metabolism
DX: E04.2 Nontoxic multinodular goiter (principal); R22.1 Localized swelling, mass and lump, neck
CPT/HCPCS: 76536

== ENCOUNTER → 2023-10-01 | Outpatient (CLI) | payer OTHER ==
--- NOTE | 2023-10-06 10:29 | MM ---
Reason for Exam: Screening (asymptomatic). Last mammogram was performed 1 year(s) and 4 month(s) ago. Patient History: Menarche at age 10. First Full-Term at age 18. Postmenopausal. Hormonal Contraceptives for 3 years from age 15 until age 18. Unspecified Hormone, starting at age 36 for 6 years. Risk Values: Shari 5 year model risk: 1.1%. NCI Lifetime model risk: 6.0%. Prior Study Comparison: 08/30/2014 Bilateral Screening Mammogram, [facility]. 10/02/2018 Bilateral Screening Mammogram, [facility]. 05/21/2022 Bilateral MG screening mammo w CAD, [facility]. Tissue Density: The breasts are heterogeneously dense, which may obscure small masses. Findings: Analyzed By CAD. Right breast: There is no suspicious group of microcalcifications or new suspicious mass. Left breast: There is no suspicious group of microcalcifications or new suspicious mass. Overall Assessment: Negative, BI-RAD 1 Management: Screening Mammogram of both breasts in [address] [facility] will attempt to contact patient to return for supplemental views and ultrasound if indicated. Patient should continue monthly self-breast exams. A clinical breast exam by your physician is recommended on an annual basis. This exam should not preclude additional follow-up of suspicious palpable abnormalities. Note on Shari scores and lifetime risk: 1. A Shari score greater than 3% is considered moderate risk. If this is the case, consider specialist referral to assess eligibility for a risk reducing agent. 2. If overall lifetime risk for the development of breast cancer is 20% or higher, the patient may qualify for future screening with alternating mammogram and breast MRI. Electronically signed and approved by: Viral Connors DO
== END | disposition home or self-care (01) ==
LOC: RADMAMWWP 15:26
PROVIDERS: ATTEND Family Medicine
DX: Z12.31 Encounter for screening mammogram for malignant neoplasm of breast (principal); R92.333 Mammographic heterogeneous density, bilateral breasts; Z78.0 Asymptomatic menopausal state
CPT/HCPCS: 77067